=== PATIENT | male | born 1950 | race Caucasian/White ===

== ENCOUNTER 2018-10-26 16:02 | Emergency (ER) | payer BC ==
[2018-10-26 16:31] VITALS: BP 110/74
[2018-10-26] MEDS ORDERED: AMOX/CLAV 875 MG/125 MG TABLET PO STA (17:10)
--- NOTE | 2018-10-26 17:12 | ED Physician Documentation ---
PD HPI UPPER EXT INJURY - Stated complaint Stated Complaint: CAT BITE - Chief complaint Chief Complaint: Wound - History obtained from History obtained from: Patient - History of Present Illness Location: Right (His own cat bit him on the right hand at about 1 PM today. Pain is minimal. He is up-to-date on tetanus.) Review of Systems Constitutional: reports: Reviewed and negative Cardiac: reports: Reviewed and negative Respiratory: reports: Reviewed and negative PD PAST MEDICAL HISTORY - Present Medications Home Medications: Ambulatory Orders Medication Instructions Recorded Confirmed Amox/Clav 875/125 [Augmentin] 1 each PO Q12H #10 tablet 10/26/18 - Allergies Allergies/Adverse Reactions: Allergies Allergy/AdvReac Type Severity Reaction Status Date / Time No Known Drug Allergies Allergy Verified 10/26/18 16:31 PD ED PE NORMAL - Vitals Vital signs reviewed: Yes - General General: Alert and oriented X 3, No acute distress - Extremities Extremities: Other (On the right hand there is a single noninfected appearing puncture wound on the right dorsal first webspace without tenderness or limited range of motion.) - Neuro Neuro: Alert and oriented X 3, Normal speech Results - Vitals Vitals: Vital Signs - 24 hr 10/26/18 16:29 Temperature 36.5 C Heart Rate 69 Respiratory 18 Rate Blood Pressure 110/74 O2 Saturation 100 Oxygen O2 Source Room air Departure - Departure Disposition: 01 Home, Self Care Clinical Impression: Animal bite with open wound Condition: Good Record reviewed to determine appropriate education?: Yes Instructions: Bites Scratches Animal Prescriptions: Amox/Clav 875/125 [Augmentin] 1 each PO Q12H #10 tablet Comments: Return for reevaluation if you develop signs of infection including increased pain, redness, swelling, drainage or fever.
== END 2018-10-26 17:28 | disposition home or self-care (01) ==
LOC: ED 16:02
DX: S61.451A Open bite of right hand, initial encounter (principal); W55.01XA Bitten by cat, initial encounter
CPT/HCPCS: 99283; A9270

== ENCOUNTER 2019-01-12 16:30 | Emergency (ER) | payer BC, MEDICARE ==
[2019-01-12 16:49] VITALS: BP 121/78
[2019-01-12] MEDS ORDERED: LIDOCAINE 2% 10 ML MDV SUBQ STA (16:55)
[2019-01-12] MEDS ORDERED: BACITRACIN OINT TOP STA (17:30)
--- NOTE | 2019-01-12 17:36 | ED Physician Documentation ---
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) Where injury occurred: Home Timing - onset: How many hours ago (1) Timing - duration: Hours (1) Timing - details: Abrupt onset Pain level max: 3 Pain level now: 2 Improved by: Rest Worsened by: Moving, Palpating Associated symptoms: No: Weakness, Numbness, Tingling Contributing factors: No: Anticoagulated Similar symptoms before: Has not had sx before Recently seen: Not recently seen Review of Systems Neurologic: denies: Focal weakness, Numbness PD PAST MEDICAL HISTORY - Past Medical History Past Medical History: No Other Past Medical History: denies - Past Surgical History Past Surgical History: No - Present Medications Home Medications: Ambulatory Orders Medication Instructions Recorded Confirmed No Known Home Medications 01/12/19 01/12/19 - Allergies Allergies/Adverse Reactions: Allergies Allergy/AdvReac Type Severity Reaction Status Date / Time No Known Drug Allergies Allergy Verified 01/12/19 16:42 - Social History Does the pt smoke?: No Smoking Status: Never smoker Does the pt drink ETOH?: Yes Does the pt have substance abuse?: No - Immunizations Immunizations are current?: Yes - POLST Patient has POLST: No PD ED PE NORMAL - Vitals Vital signs reviewed: Yes - General General: Alert and oriented X 3, No acute distress - Derm Derm: Warm and dry - Neuro Neuro: Alert and oriented X 3 PD ED PE EXPANDED - Extremities DANA UE/Hands Visual: 1 - laceration (1.5cm, flap, superficial, NVI. tendon intact. no FB) 2 - laceration (1cm, superficial, wedge shaped. NVI. no FB) Results - Vitals Vitals: Vital Signs - 24 hr 01/12/19 16:36 Temperature 36.5 C Heart Rate 100 Respiratory 18 Rate Blood Pressure 121/78 O2 Saturation 96 Oxygen O2 Source Room air Procedures - Laceration (location) L index finger Length in cm: 1.5 Wound type: Flap, Into subcut fat, Clean Neurovascular status: Sensory intact, Motor intact, Vascular intact Tendon involvement: Tendon intact Anesthesia: Lidocaine 2% Wound Preparation: Irrigated copiously NS (250ml NS), Wound explored, To the base. No: FB identified Skin layer closure: Nylon, Interrupted, Size #-0 - enter number (4) Other: Patient tolerated well, No complications, Neurovascular intact, Tetanus UTD Complexity: Simple L index finger 2 Length in cm: 1.5 Wound type: Superficial, Other (wedge shaped) Neurovascular status: Sensory intact, Motor intact, Vascular intact Tendon involvement: Tendon intact. No: Tendon Injury Anesthesia: Lidocaine 2% Wound Preparation: Irrigated copiously NS (250ml NS), Wound explored, To the base. No: FB identified Skin layer closure: Nylon, Interrupted, Size #-0 - enter number (4) Other: Patient tolerated well, No complications, Neurovascular intact, Dressing applied, Tetanus UTD Complexity: Simple PD MEDICAL DECISION MAKING - ED course Complexity details: considered differential, d/w patient ED course: 68-year-old male with 2 lacerations to the left index finger from hedge trimmers. These were repaired. Tolerated well. No tendon injury. Full range of motion of the finger tested against resistance. No evidence of bony injury. Patient refuses x-ray. Tetanus is up-to-date. Warnings of infection and instructions on wound care given at bedside. Also counseled on how to minimize scarring. Patient counseled regarding signs and symptoms for which I believe and urgent re-evaluation would be necessary. Patient with good understanding of and agreement to plan and is comfortable going home at this time This document was made in part using voice recognition software. While efforts are made to proofread this document, sound alike and grammatical errors may occur. Departure - Departure Disposition: 01 Home, Self Care Clinical Impression: Finger laceration Qualifiers: Encounter type: initial encounter Finger: unspecified finger Damage to nail status: without damage Foreign body presence: without foreign body Laterality: left Qualified Code(s): S61.219A - Laceration without foreign body of unspecified finger without damage to nail, initial encounter Condition: Good Instructions: ED Laceration Hand Follow-Up: your,doctor in 10 days for suture removal. [Other] Comments: Keep the wound clean. You can use the splint to help protect the finger. You can also remove it if you would like. Return if you notice redness, swelling or drainage from the wound. The stitches should be removed in approximately 10 days either here or with your doctor.
== END 2019-01-12 17:56 | disposition home or self-care (01) ==
LOC: ED 16:30
DX: S61.211A Laceration without foreign body of left index finger without damage to nail, initial encounter (principal); W29.3XXA Contact with powered garden and outdoor hand tools and machinery, initial encounter; Y92.009 Unspecified place in unspecified non-institutional (private) residence as the place of occurrence of the external cause
CPT/HCPCS: 12002; 99282; 99283; A9270

== ENCOUNTER 2021-04-18 11:01 | Emergency (ER) | payer MEDICARE, BC ==
[2021-04-18 11:47] VITALS: BP 122/76
== END 2021-04-18 12:30 | disposition left against medical advice (07) ==
LOC: ED 11:01
DX: Z53.21 Procedure and treatment not carried out due to patient leaving prior to being seen by health care provider (principal)